=== PATIENT | female | born 1960 | race Caucasian/White ===

== ENCOUNTER 2023-09-11 10:29 | Emergency (ER) | payer OTHER, SELFPAY ==
--- NOTE | ~2023-09-11 | XR_ITS ---
EXAMINATION: XR wrist LT min 3V DATE: 09/11/2023 11:00 INDICATION: Left wrist osteoarthritis. TECHNIQUE: 4 views of left wrist were obtained. COMPARISON: None. FINDINGS: There is 5 mm positive ulnar variance. No fracture. There is degenerative cystic change in lunate, consistent with ulnolunate impaction syndrome. There is mild osteoarthritis of triscaphe join t and first metacarpophalangeal joint and moderate osteoarthritis of second and third metacarpophalan geal joints. There are dystrophic calcifications in the wrist. 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 Reviewed, dictated and finalized at location A. ENTER'S ASSISTANT
--- NOTE | 2023-09-11 10:32 | ED.UPPEXIN ---
HPI - Extremity Injury (Upper) General Chief Complaint: Extremity Problem,Nontraumatic Stated Complaint: Left wrist pain Source: patient and RN notes reviewed Mode of arrival: ambulatory Limitations: no limitations History of Present Illness HPI narrative: Patient is a 63-year-old female who presents to the [facility] with complaints of left wrist pain. Patient believes she over worked the wrist yesterday while doing yd work. She denies known injury to the wrist. She reports decreased range of motion of the wrist. She is neurovascularly intact distally. Sensation is intact and she denies numbness. She reports history of osteoarthritis. Related Data Home Medications Medication Instructions Recorded Confirmed atenolol 50 mg tablet mg 09/11/23 citalopram 20 mg tablet mg 09/11/23 Allergies Allergy/AdvReac Type Severity Reaction Status Date / Time No Known Allergies Allergy Unverified 05/21/17 15:18 Review of Systems Review of Systems: CONSTITUTIONAL: Denies fever, chills, or sweats. EYES: Denies visual changes, redness, or discharge. ENT: Denies otalgia and sore throat CARDIOVASCULAR: Denies chest pain, palpitations, or edema. RESPIRATORY: Denies cough or dyspnea. GASTROINTESTINAL: Denies abdominal pain, nausea, vomiting, or diarrhea. GENITOURINARY: Denies dysuria or hematuria. SKIN: Denies rash or itching. MUSCULOSKELETAL: Denies back pain or myalgia. Reports left wrist pain. NEUROLOGIC: Denies headache, numbness, or weakness. Pertinent positives per HPI. PMFSH Comments At the time of my signature, I reviewed and agree with the nursing past medical, surgical, social, and family history. There is no relevant family history pertinent to the patient complaint. Exam Narrative: GENERAL: This is a well-nourished, well-developed patient, in no apparent distress. HEAD: normocephalic, atraumatic. EYES: PERRL. Sclera clear/white. Vision is grossly intact. EARS: External ears normal, auditory canals clear and without drainage, TMs normal without perforation. Hearing grossly intact. NOSE: External nose normal with no obvious nasal discharge, nares without redness, no rhinorrhea. THROAT: Mucous membranes moist, posterior pharynx clear. NECK: Neck supple, non-tender without lymphadenopathy, masses or thyromegaly. CARDIOVASCULAR: Regular rate and rhythm without murmurs, gallops, or rubs. RESPIRATORY: Clear to auscultation. Breath sounds equal bilaterally. No wheezes, rales, or rhonchi. GASTROINTESTINAL: Abdomen soft, non-tender, nondistended. Bowel sounds are active. No hepato-splenomegaly, or palpable masses. No guarding. SKIN: warm, intact with no suspicious lesions or rash, good texture and turgor. NEURO: awake, alert, and oriented to person, place and time. There were no obvious focal neurologic abnormalities. EXTREMITIES: Left wrist pain and swelling. Decreased range of motion. Cap refill is normal. Pulse intact. No obvious deformity. Course Course Level of Care: Express Care Visit Vital Signs Vital signs: Vital Signs Temperature 97.6 F 09/11/23 10:40 Pulse Rate 65 09/11/23 10:40 Respiratory Rate 16 09/11/23 10:40 Blood Pressure 115/72 09/11/23 10:40 Pulse Oximetry 98 09/11/23 10:40 Oxygen Delivery Room Air 09/11/23 10:40 Temperature 97.6 F 09/11/23 10:40 Pulse Rate 65 09/11/23 10:40 Respiratory Rate 16 09/11/23 10:40 Blood Pressure 115/72 09/11/23 10:40 Pulse Oximetry 98 09/11/23 10:40 Oxygen Delivery Room Air 09/11/23 10:40 Reviewed Transfer Transfered to: [facility] Transportation: Other (Private vehicle, refused ambulance transport) Transfer rationale: Near syncope Accepting physician: Dr. Dove MDM - Extremity Injury (Upper) MDM Narrative Medical decision making narrative: Patient became extremely diaphoretic and felt like she was going to pass out while getting her x-ray performed at approximately 10:55 a.m.. Patient continues
[2023-09-11 10:40] VITALS: BP 115/72; PULSE 65; RESP 16; TEMP 36.4; O2SAT 98
--- NOTE | 2023-09-11 11:02 | ECG_ITS ---
Measurements Intervals [place] Rate: 63 P: -54 PA: 144 QRS: 64 QRSD: 92 T: 52 QT: 409 QTc: 420 Interpretive Statements ECTOPIC ATRIAL RHYTHM ABNORMAL ECG NO PREVIOUS ECG AVAILABLE FOR COMPARISON Electronically Signed On 09-11-2023 14:51:27 [employer]IOR [employer] by Rex Craven D.O.
--- NOTE | 2023-09-11 11:17 | PC.NURSE ---
During s-ray patient became extremely diaphoretic, felt like passing out. Taken back to room and EKG done. felt better after approximately 5 minutes.
--- NOTE | 2023-09-11 11:19 | PC.NURSE ---
Repeat b/p 118/67
== END 2023-09-11 11:31 | disposition short-term general hospital (02) ==
PROVIDERS: Emergency Provider Nurse Practitioner; PCP Internal Medicine
DX: R55 Syncope and collapse (principal); M25.532 Pain in left wrist; M19.032 Primary osteoarthritis, left wrist; I10 Essential (primary) hypertension
CPT/HCPCS: 73110; 93005; 99203; G0463